=== PATIENT | female | born 2000 | race Caucasian/White ===

== ENCOUNTER 2023-03-20 11:15 | Outpatient (RCR) | payer BC, SELFPAY ==
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
[2023-03-10 11:45] VITALS: BP 108/78; PULSE 71; TEMP 36.7
[2023-03-10 11:47] VITALS: BMI 19.4
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
--- NOTE | 2023-03-14 08:44 | HO.PHP ---
The clients case was reviewed and opened in treatment team
--- NOTE | 2023-03-20 13:06 | HO.PHPPROGNO ---
Subjective Subjective Date of Service: 03/20/23 Reason For Visit: anxiety Medical Problems Affecting Mental Status: No Interim History: Describes mood as ?good?. Denies depression, some anxiety, although improved. No SI, no safety concerns. Finding hydroxyzine and escitalopram helpful, would like to remain with these medications. Sleep has improved. Moving in 1 months, excited and nervous about the move. Last day today, feels ready for discharge. Medication Compliance: Yes Side effects from medications: No Attending Groups: Yes Review of Systems Acute medical concerns: No Medical Review of Systems: unchanged Review of Systems Review of Systems Yes all other systems are reviewed and are negative Constitutional: Reports no additional constitutional complaints Mental Status Exam Mental Status Exam Patient Appearance: Appropriate Patient Orientation: Person, Place, Time and Situation Level of Consciousness: Appropriate Patient Behavior: Appropriate, Anxious (improved) and Good Eye Contact Mood Description: Anxious (Reports improved, although still present) Affect Description: Anxious (less) Patient Cognition Impaired: No Ability to Follow Directions: Excellent Speech Pattern: Clear, Appropriate and Soft-Spoken Memory Description: Intact Hallucinations: None Delusions: Not Present Thought Process: Intact Thought Content: positive for Intact Judgement: Good Diagnostics Vital Signs (24Hr): BMI result Body Mass Index 19.4 Assessment & Plan Assessment & Plan (1) Post traumatic stress disorder: Status: Acute Code(s): F43.10 - Post-traumatic stress disorder, unspecified Assessment and Plan: No symptoms of PTSD reported during encounter. Reports that she feels much improved since beginning program. Plans to moved to [place] to attend [employer] in 1 month. Reports that she feels ready to do this. She does not have providers lined up in [place] yet, but states that she will work on this. She states she will meet with her primary care physician soon to discuss continuing meds until she finds a prescriber. This board writer informed her I will send 1 month script of each med today. (2) Generalized anxiety disorder: Status: Acute Code(s): F41.1 - Generalized anxiety disorder Assessment and Plan: Anxiety still present but much improved. Finding escitalopram and hydroxyzine helpful. Would like to remain on these doses at this time. (3) Alcohol abuse: Status: Acute Code(s): F10.10 - Alcohol abuse, uncomplicated Assessment and Plan: Did not report any recent alcohol use. Has participated in substance use group while here, has found it helpful. Plan 1. Patient appears stable for discharge from [facility] at this time. 2. Patient to follow-up with outpatient providers going forward. Patient educated on: diagnosis, medication risk/benefits and therapeutic strategies Informed Consent: understands Reason for contiued partial hosp. stay Substantial Risk for: stable for discharge Certification I certify that partial hospital treatment is medically necessary due to the symptoms and problems resulting from the patient's mental illness and the failure to treat the patient at the partial hospital level of care would likely result in the patient requiring inpatient psychiatric care which could not be prevented at a less intensive level of care. Total time managing care of this patient today _20___ minutes. Discharge Plan Discharge Attending provider: Raffy Turner Medications: New escitalopram oxalate 10 mg tablet 10 mg PO DAILY Qty: 30 0RF hydroxyzine HCl 25 mg tablet 25 mg PO BID PRN (Reason: anxiety) Qty: 60 0RF Stand Alone Forms: Patient Portal Discharge page Patient Education: Post Traumatic Stress Disorder (DC)
== END 2023-03-20 23:59 | disposition home or self-care (01) ==
LOC: HO.PHPA 11:15
PROVIDERS: Visit Provider Psychiatry & Neurology Psychiatry
DX: F43.10 Post-traumatic stress disorder, unspecified (principal); F41.1 Generalized anxiety disorder; F10.10 Alcohol abuse, uncomplicated
CPT/HCPCS: 90791; 90853